=== PATIENT | female | born 1985 | race Caucasian/White ===

== ENCOUNTER 2018-07-04 14:46 | Emergency (ER) | payer MEDICAID ==
[~2018-07-04] VITALS: Ht 157.5 cm; Wt 104.0 kg
[~2018-07-04 14:46] MED LIST: PREN-39 PO
[2018-07-04 15:31] VITALS: Ht 157.5 cm; Wt 104.0 kg
[2018-07-04 20:35] VITALS: BP 171/86; PULSE 76; RESP 16
--- NOTE | 2018-07-05 17:32 | ERD ---
ER Documentation Chief Complaint Chief Complaint VAGINAL BLEEDING W/ 3 WEEKS HPI 33-year-old female year-old [female/male] coming in today with Chief Complaint: vaginal bleeding History of Present Illness: Patient coming in today with complaint of vaginal bleeding that started today. Patient reports light bleeding. Associated symptoms includes lower abdominal cramping. Denies use of medications at home for symptoms. Denies any trauma. Partner at bedside. Review of systems: All systems were reviewed and are negative except for what is indicated in the history of present illness. Past Medical History: Negative for hypertension, diabetes or other medical problems Social History: Patient denies tobacco, alcohol, elicit drug use Medications: None Allergies: NKDA Social Concerns: Denies ROS All systems reviewed and are negative except as per history of present illness. Medications Home Meds Reported Medications Vits W-Ca,Fe,Fa(<1MG) ( Vitamins) 1 Tab Tablet, 1 TAB PO 10/11/13 Allergies Allergies: Coded Allergies: No Known Allergies (Unverified Allergy, Unknown, 10/11/13) PMhx/Soc Medical and Surgical Hx: pt denies Medical Hx, pt denies Surgical Hx Hx Alcohol Use: No Hx Substance Use: No Hx Tobacco Use: No Smoking Status: Never smoker Physical Exam Vitals Vital Signs Date Temp Pulse Resp B/P (MAP) Pulse Ox O2 O2 Flow FiO2 Time Delivery Rate 07/04/18 98.2 76 16 171/86 100 Room Air 20:35 (114) 07/04/18 98.1 79 20 149/74 99 15:31 (99) Physical Exam Const: No acute distress Head: Atraumatic Eyes: Normal Conjunctiva ENT: Normal External Ears, Nose and Mouth. Neck: Full range of motion. No meningismus. Resp: Clear to auscultation bilaterally Cardio: Regular rate and rhythm, no murmurs Abd: Soft, non distended. Normal bowel sounds. Tenderness noted to suprapub ic and pelvic area. No grimacing noted. Skin: No petechiae or rashes Back: No midline or flank tenderness Ext: No cyanosis, or edema Neur: Awake and alert Psych: Normal Mood and Affect Vaginal exam deferred, patient refused after hearing ultrasound results. Result Diagram: 07/04/18 1832 Results 24 hrs Laboratory Tests Test 07/04/18 18:32 White Blood Count 18.6 10^3/ul Red Blood Count 4.57 10^6/ul Hemoglobin 14.0 g/dl Hematocrit 41.1 % Mean Corpuscular Volume 89.9 fl Mean Corpuscular Hemoglobin 30.6 pg Mean Corpuscular Hemoglobin Concent 34.1 g/dl Red Cell Distribution Width 13.3 % Platelet Count 123 10^3/UL Mean Platelet Volume 12.4 fl Immature Granulocytes % 0.800 % Neutrophils % 67.2 % Segmented Neutrophils % (Manual) 71 % Lymphocytes % 24.7 % Lymphocytes % (Manual) 24 % Reactive Lymphocytes % (Manual) 1 % Monocytes % 6.0 % Monocytes % (Manual) 3 % Eosinophils % 0.8 % Basophils % 0.5 % Myelocytes % (Manual) 1 % Nucleated Red Blood Cells % 0.0 /100WBC Immature Granulocytes # 0.150 10^3/ul Neutrophils # 12.5 10^3/ul Lymphocytes (Manual) 4.4 10^3/ul Lymphocytes # 4.6 10^3/ul Reactive Lymphocytes # 0.1 10^3/ul Monocytes # 1.1 10^3/ul Monocytes # (Manual) 0.5 10^3/ul Eosinophils # 0.1 10^3/ul Basophils # 0.1 10^3/ul Myelocytes # 0.1 10^3/ul Nucleated Red Blood Cells # 0.0 10^3/ul Platelet Estimate DECREASED Anisocytosis 1+ Microcytosis 1+ Urine Color YELLOW Urine Clarity SLIGHTLY CLOUDY Urine pH 6.0 Urine Specific [place] 1.024 Urine Ketones NEGATIVE mg/dL Urine Nitrite NEGATIVE mg/dL Urine Bilirubin NEGATIVE mg/dL Urine Urobilinogen 2+ mg/dL Urine Leukocyte Esterase NEGATIVE Bambi/ul Urine Microscopic RBC 14 /HPF Urine Microscopic WBC 3 /HPF Urine Squamous Epithelial Cells FEW /HPF Urine Bacteria FEW /HPF Urine Mucus FEW /HPF Urine Hemoglobin 2+ mg/dL Urine Glucose NEGATIVE mg/dL Urine Total Protein NEGATIVE mg/dl Beta HCG, Quantitative 52536.0 mIU/ml Procedures/MDM ED course includes a thorough examination and history. ED course includes medication; acetaminophen for pain. ED course includes labs; CBC, hCG quantitative, urinalysis. ED course includes imaging; ob ultrasound transvaginal and abdominal Low suspicion for life-threatening medical emergency or gynecological emergency requires hospitalization at this moment. Otherwise healthy patient presenting with constellation of symptoms likely rep resenting uncomplicated vaginal bleeding/threatened miscarriage as characterized by history, physical exam findings imaging/lab findings. hCG quantitative 12,081. Urinalysis no signs of infection, patient reporting dirty catch sample. Ultrasound results impression: single intrauterine gestational with a yolk sac but no pole. The estimated gestational age is 5 weeks and 5 days at which point the pole may not be visible by imaging. No respiratory distress, otherwise relatively well appearing and nontoxic. Patient educated on diagnoses, follow-up care, return precautions. Strict return precautions given for worsening condition; questions answered discharge. Patient reassessment at discharge: Patient is anxious regarding use of possible miscarriage. Patient is hypertensive but no signs of hypertensive crisis. No headache, no nausea vomiting, patient cooperative and speaking in clear sentences. Okay for discharge and educate on importance of rest. 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 Disposition for discharge with followup in 2-3 days with PCP/clinic follow-up for reevaluation of serial hCG levels. Departure Diagnosis: Primary Impression: Vaginal bleeding in patient at less than 20 weeks ges... Additional Impression: Threatened in first trimester Condition: Stable Patient Instructions: Bleeding During Early Referrals: COMMUNITY CLINICS YOU HAVE RECEIVED A MEDICAL SCREENING EXAM AND THE RESULTS INDICATE THAT YOU DO NOT HAVE A CONDITION THAT REQUIRES URGENT TREATMENT IN THE EMERGENCY DEPARTMENT. FURTHER EVALUATION AND TREATMENT OF YOUR CONDITION CAN WAIT UNTIL YOU ARE SEEN IN YOUR DOCTORS OFFICE WITHIN THE NEXT 1-2 DAYS. IT IS YOUR RESPONSIBILITY TO MAKE AN APPOINTMENT FOR FOLOW-UP CARE. IF YOU HAVE A PRIMARY DOCTOR --you should call your primary doctor and schedule an appointment IF YOU DO NOT HAVE A PRIMARY DOCTOR YOU CAN CALL OUR PHYSICIAN REFERRAL HOTLINE AT IF YOU CAN NOT AFFORD TO SEE A PHYSICIAN YOU CAN CHOSE FROM THE FOLLOWING [facility] [address] [facility] [address] [facility] [address] [facility] [address] [facility] [address] [facility] [address]. [facility] [address] [facility] YOU HAVE RECEIVED A MEDICAL SCREENING EXAM AND THE RESULTS INDICATE THAT YOU DO NOT HAVE A CONDITION THAT REQUIRES URGENT TREATMENT IN THE EMERGENCY DEPARTMENT. FURTHER EVALUATION AND TREATMENT OF YOUR CONDITION CAN WAIT UNTIL YOU ARE SEEN IN YOUR DOCTORS OFFICE WITHIN THE NEXT 1-2 DAYS. IT IS YOUR RESPONSIBILITY TO MAKE AN APPOINTMENT FOR FOLOW-UP CARE. IF YOU HAVE A PRIMARY DOCTOR --you should call your primary doctor and schedule and appointment IF YOU DO NOT HAVE A PRIMARY DOCTOR YOU CAN CALL OUR PHYSICIAN REFERRAL HOTLINE AT . IF YOU CAN NOT AFFORD TO SEE A PHYSICIAN YOU CAN CHOSE FROM THE FOLLOWING [facility]: [facility] [address] [place] [address] [facility] [address] [place] [address] [facility] [address] [place] [address] [facility] Hours: 8:00 am - 5:00 pm Additional Instructions: Call your primary care doctor TOMORROW for an appointment during the next 2-3 days.See the doctor sooner or return here if your condition worsens before your appointment time. Ensure you are taking vitamins. Recommend repeat hCG levels in 3 days to make sure that levels are trending up, which would mean her probable viable . You can call your primary care doctor/OBGYN/CLINIC for lab orders to get hCG level repeated . Current hCG level today [id number]. ------ Llame a laurent mdico de atencin primaria MAANA para corin gaby janice los prximos 2 a 3 paul. Consulte al mdico antes o vuelva aqu si laurent afeccin empeora antes de la hora de laurent gaby. Asegrese de que est tomando vitaminas prenatales. Recomiende repetir los niveles de hCG en 3 paul para asegurarse de que los niveles estn mejorando, lo que significara laurent probable embarazo viable. Puede llamar a laurent mdico de atencin primaria / OBGYN / CLINIC para pedirles que le repitan el nivel de hCG. [place]ivel [place] de hCG [place] [id number]. NORMA CASE NP Jul 05, 2018 17:32
== END 2018-07-04 20:37 | disposition home or self-care (01) ==
LOC: FTE 14:46
DX: O20.0 Threatened abortion (principal); R10.2 Pelvic and perineal pain; Z3A.01 Less than 8 weeks gestation of pregnancy
CPT/HCPCS: 36415; 76801; 76817; 81001; 84702; 85025; Z7502

== ENCOUNTER 2019-01-05 11:01 | Outpatient (CLI) | payer MEDICAID ==
[~2019-01-05] VITALS: Ht 154.9 cm; Wt 109.9 kg
[~2019-01-05 11:01] MED LIST changes: +DOCU-144 PO; +IBUP-1542 PO
[2019-01-05 11:15] VITALS: BP 124/64; PULSE 75; RESP 18; Ht 154.9 cm; Wt 109.9 kg
[2019-01-05] MEDS ORDERED: TERBUTALINE 1 MG/ML INJ SC ONE (14:30)
== END 2019-01-05 17:40 | disposition home or self-care (01) ==
LOC: OBT 11:01 → L-D 11:02 → OBT 17:40
PROVIDERS: ATTEND Obstetrics & Gynecology
DX: O41.93X0 Disorder of amniotic fluid and membranes, unspecified, third trimester, not applicable or unspecified (principal); Z3A.32 32 weeks gestation of pregnancy
CPT/HCPCS: 76817; 76818; 81001; 84112; 87086; J3105; Z7500; G0463

== ENCOUNTER 2019-02-18 08:14 | Inpatient (IN) | payer MEDICAID ==
[~2019-02-18] VITALS: Ht 154.9 cm; Wt 108.4 kg
[2019-02-18 08:36] VITALS: Ht 154.9 cm; Wt 108.4 kg
[2019-02-18] MEDS ORDERED: LACTATED RINGER'S 1,000 ML IV ONE (10:00)
[2019-02-18] MEDS ORDERED: LACTATED RINGER'S 1,000 ML IV SCH ×3 (11:00→19:23)
[2019-02-18] MEDS ORDERED: CEFAZOLIN 2 GM/50 ML (PMX) 50 ML IVPB SCH (13:00)
[2019-02-18] MEDS ORDERED: MISOPROSTOL 200 MCG TAB PR PRN ×2 (13:00→19:30)
[2019-02-18] MEDS ORDERED: OXYTOCIN 30 UNITS/LR 500 ML IV SCH (13:00)
[2019-02-18] MEDS ORDERED: OXYTOCIN 30 UNITS/LR 500 ML IV PRN ×2 (13:00→19:30)
[2019-02-18] MEDS ORDERED: METHYLERGONOVINE 0.2 MG INJ IM PRN ×2 (13:00→19:30)
[2019-02-18] MEDS ORDERED: CITRIC ACID/NA CITRATE 30 ML CUP PO ONE (13:00)
[2019-02-18] MEDS ORDERED: CARBOPROST 250 MCG INJ IM PRN ×2 (13:00→19:30)
[2019-02-18] MEDS ORDERED: KETOROLAC 30 MG INJ ONE (13:54)
[2019-02-18] MEDS ORDERED: METOCLOPRAMIDE 10 MG INJ ONE (13:54)
[2019-02-18] MEDS ORDERED: morphine SULFATE/PF (10 MG/10 ML) INJ ONE (13:54)
[2019-02-18] MEDS ORDERED: OXYTOCIN 30 UNITS/LR 500 ML IV ONE (14:59)
[2019-02-18] MEDS ORDERED: ONDANSETRON 4 MG INJ IV PRN ×3 (18:00→19:30)
[2019-02-18] MEDS ORDERED: morphine 2 MG INJ IV PRN ×6 (18:00→18:30)
[2019-02-18] MEDS ORDERED: KETOROLAC 30 MG INJ IV PRN ×2 (18:00→18:30)
[2019-02-18 18:30] VITALS: BP 115/58; PULSE 72; RESP 18
[2019-02-18] MEDS ORDERED: NALOXONE (0.4 MG/ML) INJ IV PRN (18:30)
[2019-02-18] MEDS ORDERED: DIPHENHYDRAMINE 50 MG INJ IV PRN ×2 (18:30→19:30)
[2019-02-18 18:52] VITALS: BP 113/53; PULSE 67; RESP 18
[2019-02-18] MEDS ORDERED: OXYCODONE/ASPIRIN (4.88/325) TAB PO PRN ×2 (19:30)
[2019-02-18] MEDS ORDERED: OXYCODONE/ACETAMINOPHEN (5/325) TAB PO PRN (19:30)
[2019-02-18] MEDS ORDERED: BENZOCAINE 20% 56 ML SPRAY TOP PRN (19:30)
[2019-02-18] MEDS ORDERED: ZOLPIDEM 5 MG TAB PO PRN ×2 (19:30)
[2019-02-18] MEDS ORDERED: WITCH HAZEL/GLYCERIN PAD PR PRN (19:30)
[2019-02-18] MEDS ORDERED: LANOLIN HPA 1 PKT TOP PRN ×2 (19:30)
[2019-02-18] MEDS ORDERED: SENNA/DOCUSATE NA (8.6MG/50MG) TAB PO SCH (21:00)
[2019-02-18 21:09] VITALS: BP 112/52; PULSE 70; RESP 18
[2019-02-18] MEDS: SENNA/DOCUSATE NA (8.6MG/50MG) TAB PO SCH (21:46)
[2019-02-19] VITALS (8 sets, daily range): BP systolic 102–121; BP diastolic 51–66; PULSE 72–80; RESP 17–20
[2019-02-19] MEDS: SENNA/DOCUSATE NA (8.6MG/50MG) TAB PO SCH ×2 (09:23→21:44)
[2019-02-19] MEDS ORDERED: IBUPROFEN 600 MG TAB PO SCH (18:00)
[2019-02-19] MEDS: IBUPROFEN 600 MG TAB PO SCH (18:19)
[2019-02-20] MEDS: IBUPROFEN 600 MG TAB PO SCH ×5 (00:46→23:57)
[2019-02-20 04:00] VITALS: BP 114/76; PULSE 67; RESP 18
[2019-02-20 08:15] VITALS: BP 112/57; PULSE 73; RESP 18
[2019-02-20] MEDS ORDERED: DIPHTH/TET/ACEL PERTUSS (ADULT) 0.5 ML VIAL IM* ONE (09:00)
[2019-02-20] MEDS: SENNA/DOCUSATE NA (8.6MG/50MG) TAB PO SCH ×2 (11:24→21:46)
[2019-02-20 16:00] VITALS: BP 115/62; PULSE 74; RESP 18
[2019-02-20] MEDS: OXYCODONE/ACETAMINOPHEN (5/325) TAB PO PRN (19:58)
[2019-02-20 20:00] VITALS: BP 123/58; PULSE 76; RESP 18
[2019-02-21 04:00] VITALS: BP 111/53; PULSE 62; RESP 16
[2019-02-21] MEDS: IBUPROFEN 600 MG TAB PO SCH ×2 (05:48→11:21)
[2019-02-21 08:00] VITALS: BP 108/59; PULSE 69; RESP 19
[2019-02-21 08:05] VITALS: BP 126/72; PULSE 77
[2019-02-21 08:10] VITALS: BP 129/72; PULSE 79
[2019-02-21] MEDS ORDERED: DIPHTH/TET/ACEL PERTUSS (ADULT) 0.5 ML VIAL IM* ONE ×2 (09:00→12:00)
[2019-02-21] MEDS: SENNA/DOCUSATE NA (8.6MG/50MG) TAB PO SCH (09:25)
[2019-02-21] MEDS: OXYCODONE/ACETAMINOPHEN (5/325) TAB PO PRN (14:49)
[2019-02-21 15:53] VITALS: BP 115/71; PULSE 80; RESP 18
[2019-02-21] MEDS ORDERED: FLUCONAZOLE 150 MG TAB PO ONE ×2 (16:30→18:30)
== END 2019-02-21 18:15 | disposition home or self-care (01) | DRG 784 ==
LOC: L-D 08:14 → OBT 08:14 → L-D 13:02 → PP1 18:34
PROVIDERS: ADMIT Obstetrics & Gynecology; ATTEND Obstetrics & Gynecology
PROC: 0UT70ZZ Resection of Bilateral Fallopian Tubes, Open Approach (ICD-10-PCS; 2019-02-18)
PROC: 10D00Z1 Extraction of Products of Conception, Low, Open Approach (ICD-10-PCS; principal; 2019-02-18 15:00)
DX: O24.429 Gestational diabetes mellitus in childbirth, unspecified control (principal); O86.20 Urinary tract infection following delivery, unspecified; Z3A.38 38 weeks gestation of pregnancy; Z37.0 Single live birth; Z30.2 Encounter for sterilization
CPT/HCPCS: 36415; 81001; 85025; 85610; 85730; 86592; 86850; 86900; 86901; 87086; 87340; 88302; 90715; 96360; 96361; 99464; G0463; J0690; J1885; J2274; J2590; J2765; J7120